=== PATIENT | male | born 1985 | race Caucasian/White ===

== ENCOUNTER 2021-06-25 11:18 | Emergency (ER) | payer OTHER, SELFPAY ==
--- NOTE | ~2021-06-25 | XR_ITS ---
EXAMINATION: XR lumbar spine 2-3V DATE: 06/25/2021 12:14 INDICATION: Back pain after lifting box. TECHNIQUE: 3 views of the lumbar spine were obtained. COMPARISON: None. FINDINGS: Bone alignment is normal. Vertebral body heights and intervertebral disc heights are normal . The facet joints are unremarkable. IMPRESSION: 1. Normal lumbar spine. Reviewed, dictated and finalized at location A. IMPRESSION: 1. Normal lumbar spine.
[2021-06-25 11:29] VITALS: BP 141/89; PULSE 67; RESP 16; TEMP 36.4; O2SAT 98
--- NOTE | 2021-06-25 12:23 | ED.BACK ---
HPI - Back Pain/Injury General Chief Complaint: Back Pain/Injury Stated Complaint: Lower left back pain Time Seen by Provider: 06/25/21 12:00 Source: patient, RN notes reviewed and old records reviewed Mode of arrival: ambulatory Limitations: no limitations History of Present Illness HPI Narrative: 35 year old male who present to express care with complaints of lifting a box at work last evening around 1900 was lifting about 35 lb box which was long and narrow upon a pallet about 2.5 feet higher. Patient reports feeling sensation to his left lower back with pain getting worse during the night with it now radiating into buttocks and around to left abdomen. Patient reports that he had laminectomy in January of 2021 of L5 at [facility]. He states that prior to his surgery he had left lower back pain which radiates down his posterior left leg to mid thigh which resolved after his surgery.Patient reports that he has no tingling or numbness in his legs and denies any difficulty with passing his urine or his bowel, denies any saddle paraesthesia. MD elicited complaint: back pain and back injury Pertinent past history: prior back pain and back surgery Pain scale (0-10): 5 Location: lumbar spine and left lower back (to buttock) Radiation: abdomen Exacerbating factors: movement Associated symptoms: denies other symptoms Treatments prior to arrival: cold therapy and acetaminophen Related Data Home Medications Medication Instructions Recorded Confirmed omeprazole 20 mg PO DAILY 06/25/21 06/25/21 Allergies Allergy/AdvReac Type Severity Reaction Status Date / Time No Known Allergies Allergy Verified 06/25/21 11:31 Review of Systems Review of Systems: CONSTITUTIONAL: Denies fever, chills, or sweats. EYES: Denies visual changes, redness, or discharge. ENT: Denies rhinorrhea, congestion, sore throat, or otalgia. CARDIOVASCULAR: Denies chest pain, palpitations, or edema. RESPIRATORY: Denies cough or dyspnea. GASTROINTESTINAL: Denies abdominal pain, nausea, vomiting, or diarrhea. GENITOURINARY: Denies dysuria or hematuria. SKIN: Denies rash or itching. MUSCULOSKELETAL: positive for left back pain radiating to buttock and around to left abdomen , or myalgia. NEUROLOGIC: Denies headache, numbness, or weakness. PSYCHIATRIC: Denies anxiety or depression. All systems reviewed & are unremarkable except as noted in HPI and below PMFSH Past Medical History Medical History (Updated 06/25/21 @ 21:33 by Angelina Mcdonald NP) Celiac disease GERD (gastroesophageal reflux disease) Surgical History Surgical History (Updated 06/25/21 @ 12:59 by Angelina Mcdonald NP) H/O laminectomy 2020 Social History Social History (Updated 06/25/21 @ 21:33 by Angelina Mcdonald NP) Smoking status: Never smoker Alcohol intake: current Alcohol use details: rare social Substance use: never Living arrangements: with family Gender identity (if verbalized by the patient): Male Comments At time of signature, agree with nursing past medical, surgical, social and family history. There is no relevant family history pertinent to the presenting complaint Exam Narrative: GENERAL: Well-appearing, well-nourished, and in no acute distress. HEAD: Normocephalic, atraumatic. EYES: PERRLA and EOMI. ENT: Nares clear, no rhinorrhea or epistaxis. Mucous membranes moist.TM's normal with good lght reflex, throat pink with no lesions or exudates, no tonsil swelling. NECK: Supple.no lymphadenopathy CHEST: Clear to auscultation. No respiratory distress.SAO2 98% on room air HEART: Regular rate and rhythm. No murmur heard. Normal peripheral pulses. ABDOMEN: Soft, nontender, nondistended, normal active bowel sounds. EXTREMITIES: Normal range of motion. No edema.Pain to lower left lumbar back radiating to buttock with some radiation to left lower abdomen area, denies any groin pain, denies any tingling or numbness to left leg or any weakness of left l
== END 2021-06-25 12:47 | disposition home or self-care (01) ==
PROVIDERS: Emergency Provider Registered Nurse
DX: M54.16 Radiculopathy, lumbar region (principal); S39.012A Strain of muscle, fascia and tendon of lower back, initial encounter; X50.0XXA Overexertion from strenuous movement or load, initial encounter; Y99.0 Civilian activity done for income or pay; K90.0 Celiac disease; K21.9 Gastro-esophageal reflux disease without esophagitis
CPT/HCPCS: 72100; 99213; G0463